=== PATIENT | female | born 1960 | race Hispanic/Latino ===

== ENCOUNTER 2016-12-04 22:43 | Emergency (ER) | payer MEDICARE, BC ==
[2016-12-04 23:15] LABS: URINE BILIRUBIN NEGATIVE (NEGATIVE); URINE COLOR Straw (YELLOW); URINE GLUCOSE (UA) NORMAL (Normal); URINE KETONE NEGATIVE (NEGATIVE); URINE LEUKOCYTE ESTERASE NEG Leu/uL (Negative); URINE PROTEIN NEGATIVE (NEGATIVE); URINE UROBILINOGEN NORMAL mg/dL (0.2-1.0); WBC URINE 1 /hpf (0-5)
[2016-12-04 23:30] LABS: URINE BLOOD TRACE (NEGATIVE)
[2016-12-04 23:41] LABS: BASO # 0.1 K/uL (0.0-0.2); BASO % 0.9 % (0.0-2.0); EOS # 0.2 K/uL (0.0-0.7); HEMATOCRIT 39.4 % (34.0-47.0); LYMPH # 3.1 K/uL (1.0-4.3); LYMPH % 34.5 % (20.0-40.0); MEAN CELL VOLUME 85.6 fL (81.0-99.0); MEAN CORPUSCULAR HEMOGLOBIN 29.3 pg (27.0-31.0); MEAN CORPUSCULAR HGB CONC 34.3 g/dL (33.0-37.0); MEAN PLATELET VOLUME 8.8 fL (7.2-11.7); MONO # 0.7 K/uL (0.0-0.8); RED CELL DISTRIBUTION WIDTH 13.7 % (11.5-14.5)
[2016-12-04 23:51] LABS: CHLORIDE 100 mmol/L (98-107); SODIUM 140 mmol/L (132-148)
[2016-12-04 23:52] LABS: POTASSIUM 3.8 mmol/L (3.6-5.2)
[2016-12-04 23:54] LABS: ALB/GLOB RATIO 1.4 (1.0-2.1); ALKALINE PHOSPHATASE 93 U/L (38-126); ALT/SGPT 32 U/L (9-52); AST/SGOT 27 U/L (14-36); BILIRUBIN,TOTAL 0.5 mg/dL (0.2-1.3); BLOOD UREA NITROGEN 14 mg/dL (7-17); CALCIUM 9.7 mg/dl (8.6-10.4); CARBON DIOXIDE 25 mmol/L (22-30); GFR AFRICAN-AMERICAN > 60; GLUCOSE,RANDOM 89 mg/dL (65-105); TOTAL PROTEIN 7.9 g/dL (6.3-8.3)
--- NOTE | 2016-12-05 00:08 | C.PDOC ---
History Of Present Illness 56 year old female with a Hx of UTIs and renal transplant who presents to the ER requesting evaluation because she is concerned she is not producing her usual amount of urine. Patient reports having good compliance with her medications; denies fever, chills, dysuria, or hematuria. Patient is scheduled tomorrow for her 3 month lab test for renal function by Dr. Benavides. Time Seen by Provider: 12/04/16 23:20 Chief Complaint (Nursing): Female Genitourinary History Per: Patient History/Exam Limitations: no limitations Onset/Duration Of Symptoms: Days Current Symptoms Are (Timing): Still Present Associated Symptoms: denies: Fever, Chills, Urinary Symptoms (Dysuria, hematuria ) Alleviating Factors: None Recent travel outside of the [place]: No Abnormal Vaginal Bleeding: No Past Medical History Reviewed: Historical Data, Nursing Documentation, Vital Signs Vital Signs: Last Vital Signs Temp 98.6 F 12/05/16 00:28 Pulse 90 12/05/16 00:28 Resp 18 12/05/16 00:28 BP 146/99 H 12/05/16 00:28 Pulse Ox 99 12/05/16 00:28 - Medical History PMH: HTN Surgical History: No Surg Hx Family History: States: Unknown Family Hx - Social History Hx Alcohol Use: No Hx Substance Use: No - Immunization History Hx Tetanus Toxoid Vaccination: No Hx Influenza Vaccination: No Hx Pneumococcal Vaccination: Yes Review Of Systems Constitutional: Negative for: Fever, Chills Gastrointestinal: Negative for: Abdominal Pain Genitourinary: Positive for: Other (Producing less urine). Negative for: Dysuria, Hematuria Physical Exam - Physical Exam Appears: Non-toxic, No Acute Distress Skin: Normal Color, Warm, Dry Head: Atraumatic, Normacephalic Oral Mucosa: Moist Neck: Normal, Supple Chest: Symmetrical, No Tenderness Cardiovascular: Rhythm Regular, No JVD Respiratory: Normal Breath Sounds, No Rales, No Rhonchi, No Wheezing Gastrointestinal/Abdominal: Soft, No Tenderness Extremity: Normal ROM (x4), No Pedal Edema Neurological/Psych: Oriented x3, Normal Speech, Normal Cognition ED Course And Treatment - Laboratory Results Result Diagrams: 12/04/16 23:39 12/04/16 23:39 Lab Interpretation: Normal (UA neg.) ECG: Interpreted By Me ECG Rhythm: Sinus Rhythm ECG Interpretation: Normal Rate From EC O2 Sat by Pulse Oximetry: 100 (Room air) Pulse Ox Interpretation: Normal Progress Note: EKG, blood work, and urinalysis ordered. Reevaluation Time: 00:17 Reassessment Condition: Unchanged (remains asymptomatic) Medical Decision Making Medical Decision Making: baseline normal renal fxn. pt's concern for diminished urine output is curious but pt seems euvolemic and no s/s of fluid overload. no UTI Disposition Doctor Will See Patient In The: Office Counseled Patient/Family Regarding: Studies Performed, Diagnosis - Disposition Referrals: Deniz Benavides MD [Staff Provider] - Disposition: HOME/ ROUTINE Disposition Time: 00:18 Condition: GOOD Additional Instructions: todos manolo examenes de la farooq y la orina son normales Sigue con Dr. Benavides ahsan normal. Forms: Gen Discharge Inst Sinhala, [facility] (Mosotho) Print Language: CROATIAN - Clinical Impression Clinical Impression: Urine output low - Scribe Statement The provider has reviewed the documentation as recorded by the Scribe Jamel Weinstein All medical record entries made by the Scribe were at my direction and personally dictated by me. I have reviewed the chart and agree that the record accurately reflects my personal performance of the history, physical exam, medical decision making, and the department course for this patient. I have also personally directed, reviewed, and agree with the discharge instructions and disposition.
[2016-12-05 00:29] VITALS: BP 146/99; PULSE 90; RESP 18; TEMP 98.6
[2016-12-05 03:56] VITALS: O2SAT 100
--- NOTE | 2016-12-07 13:19 | CARD ---
APPROVED REPORT EKG Measurement Heart [id number] <Conclusion> Poor data quality, interpretation may be adversely affected Normal sinus rhythm Nonspecific ST and T wave abnormality Abnormal ECG
== END 2016-12-05 00:28 | disposition home or self-care (01) ==
LOC: C.ER 22:43
DX: R39.89 Other symptoms and signs involving the genitourinary system (principal); I10 Essential (primary) hypertension; Z87.440 Personal history of urinary (tract) infections; Z94.0 Kidney transplant status

== ENCOUNTER 2018-03-14 08:55 | Emergency (ER) | payer MEDICARE, BC ==
[2018-03-14 09:14] VITALS: TEMP 97.9
[2018-03-14] MEDS ORDERED: Lidocaine 5% Patch TD STA (10:03)
[2018-03-14] MEDS ORDERED: Lidocaine 5% Patch TD ONE (10:09)
[2018-03-14] MEDS ORDERED: Morphine 4 MG/ML VIAL ONE (10:09)
--- NOTE | 2018-03-14 10:21 | C.PDOC ---
History Of Present Illness 57 y/o female presents to ED omplaining of diffuse back pain, greatest in lower back, for approx 1 week and worsening today. She states the pain radiates down to her right leg. Patient has been taking Tylenol for pain and reports no relief. She admits to nausea, but denies fever, chills, vomiting, diarrhea, abdominal pain, dysuria/hematuria, abdominal pain, vaginal bleeding/discharge. PMHx of SLE, HTN, and kidney transplant. Time Seen by Provider: 03/14/18 09:08 Chief Complaint (Nursing): Pain, Chronic History Per: Patient History/Exam Limitations: no limitations Onset/Duration Of Symptoms: Days Current Symptoms Are (Timing): Still Present Severity: Moderate Past Medical History Reviewed: Historical Data, Nursing Documentation, Vital Signs Vital Signs: Last Vital Signs Temp 97.9 F 03/14/18 09:02 Pulse 97 H 03/14/18 09:02 Resp 18 03/14/18 09:02 BP 159/102 H 03/14/18 09:02 Pulse Ox 97 03/14/18 09:02 - Medical History PMH: HTN, Chronic Kidney Disease Family History: States: No Known Family Hx - Social History Hx Alcohol Use: Yes Hx Substance Use: No - Immunization History Hx Tetanus Toxoid Vaccination: No Hx Influenza Vaccination: Yes Hx Pneumococcal Vaccination: No Review Of Systems Except As Marked, All Systems Reviewed And Found Negative. Constitutional: Negative for: Fever, Chills Cardiovascular: Negative for: Chest Pain, Palpitations Respiratory: Negative for: Cough, Shortness of Breath Gastrointestinal: Positive for: Nausea. Negative for: Vomiting, Abdominal Pain, Diarrhea Genitourinary: Negative for: Dysuria Musculoskeletal: Positive for: Back Pain (radiating down to R leg) Skin: Negative for: Rash Neurological: Negative for: Weakness, Numbness Physical Exam - Physical Exam Appears: Well, Non-toxic, In Acute Distress (in moderate pain) Skin: Normal Color, Warm, Dry, No Rash Head: Normacephalic Eye(s): bilateral: Normal Inspection Oral Mucosa: Moist Neck: Supple Chest: Symmetrical Cardiovascular: Rhythm Regular, No Murmur Respiratory: Normal Breath Sounds, No Rales, No Rhonchi, No Wheezing Gastrointestinal/Abdominal: Normal Exam, Bowel Sounds, Soft, No Tenderness Back: No CVA Tenderness, No Vertebral Tenderness, Paraspinal Tenderness, Other (diffuse tenderness, greatest in lumbar region; no midline tenderness) Extremity: Bilateral: Normal Color And Temperature, Normal ROM Neurological/Psych: Oriented x3, Normal Speech, Normal Motor Gait: Steady ED Course And Treatment O2 Sat by Pulse Oximetry: 97 (RA) Pulse Ox Interpretation: Normal Progress Note: Patient confirms current pain is consistent with prior chronic/SLE pain. IM morphine given. Reevaluation Time: 11:20 Reassessment Condition: Improved (On reassessment, patient is resting comfortably and states her pain has improved. She is able to ambulate normally in the ED, and is comfortable being discharged home. Rxs for Tramadol and Lidoderm patches given. Patient instructed to follow up with PMD in 1-2 days, and she understands she should return to ED if symptoms worsen.) Disposition Counseled Patient/Family Regarding: Studies Performed, Diagnosis, Need For Followup - Disposition Referrals: Ivan Aguila [Staff Provider] - Disposition: HOME/ ROUTINE Disposition Time: 11:20 Condition: STABLE Prescriptions: Lidocaine 5% [Lidoderm] 1 patch TOP DAILY PRN #10 patch PRN Reason: pain traMADol [Ultram] 50 mg PO BID PRN #15 tab PRN Reason: pain Instructions: Low Back Pain (DC) Forms: [facility] (Ivorian) Print Language: FAROESE - Clinical Impression Clinical Impression: SLE (systemic lupus erythematosus), Chronic pain - Scribe Statement The provider has reviewed the documentation as recorded by the Juan Sparks Provider Attestation: All medical record entries made by the Gabrielibphong were at my direction and personally dictated by me. I have reviewed the chart and agree that the record accurately reflects my personal performance of the history, physical exam, medic al decision making, and the department course for this patient. I have also personally directed, reviewed, and agree with the discharge instructions and disposition.
[2018-03-14 12:19] VITALS: BP 143/96; PULSE 89; RESP 15
[2018-03-26 07:58] VITALS: O2SAT 97
== END 2018-03-14 11:32 | disposition home or self-care (01) ==
LOC: C.ER 08:55
DX: M32.9 Systemic lupus erythematosus, unspecified (principal); G89.29 Other chronic pain
CPT/HCPCS: 96372; 99285; J2270

== ENCOUNTER 2018-04-16 22:31 | Emergency (ER) | payer MEDICARE, BC ==
[2018-04-16] MEDS ORDERED: Oxycodone/Acetaminophen 5/325 mg Tab PO STA (23:35)
--- NOTE | 2018-04-16 23:38 | C.PDOC ---
History Of Present Illness 57 year old female presents to the ER with a complaint of pain to the left lower rib area that began last week. Patient states the pain is digitally and positionally reproducible. Denies trauma. Patient has many chronic pain issues after which she gets spinal injections. She claims she had a right renal transplant and cannot use NSAIDS. Time Seen by Provider: 04/16/18 23:25 Chief Complaint (Nursing): Abdominal Pain History Per: Patient History/Exam Limitations: no limitations Onset/Duration Of Symptoms: Days Current Symptoms Are (Timing): Still Present Location Of Pain/Discomfort: Other (Left lower rib area) Quality Of Discomfort: Unable To Describe Exacerbating Factors: None Alleviating Factors: None Recent travel outside of the [place]: No Abnormal Vaginal Bleeding: No Past Medical History Reviewed: Historical Data, Nursing Documentation, Vital Signs Vital Signs: Last Vital Signs Temp 98.8 F 04/16/18 23:02 Pulse 95 H 04/16/18 23:02 Resp 20 04/16/18 23:02 BP 128/94 H 04/16/18 23:02 Pulse Ox 95 04/16/18 23:02 - Medical History PMH: HTN, Chronic Kidney Disease Family History: States: Unknown Family Hx - Social History Hx Alcohol Use: Yes Hx Substance Use: No - Immunization History Hx Tetanus Toxoid Vaccination: No Hx Influenza Vaccination: Yes Hx Pneumococcal Vaccination: No Review Of Systems Constitutional: Negative for: Fever, Chills Cardiovascular: Negative for: Chest Pain, Palpitations Respiratory: Negative for: Cough, Shortness of Breath Gastrointestinal: Negative for: Nausea, Vomiting Musculoskeletal: Positive for: Other (Left lower rib area pain) Neurological: Negative for: Weakness, Numbness Physical Exam - Physical Exam Appears: Non-toxic, Other (In no acute distress initially but anxious on evaluation) Skin: Normal Color, Warm, Dry Head: Atraumatic, Normacephalic Eye(s): bilateral: Normal Inspection Oral Mucosa: Moist Neck: Normal, Supple Chest: Symmetrical, Tenderness (Intercostal space of left lower rib area at midclavicular line) Cardiovascular: Rhythm Regular Respiratory: Normal Breath Sounds, No Rales, No Rhonchi, No Wheezing Gastrointestinal/Abdominal: Soft, No Tenderness Back: No CVA Tenderness Extremity: Normal ROM (x4) Neurological/Psych: Oriented x3, Normal Speech ED Course And Treatment O2 Sat by Pulse Oximetry: 95 Medical Decision Making Medical Decision Making: intercostal pain, chronic L lower ribs NOT abdominal pending bone scan in AM refused NSAIDS due to renal txplnt Declined Tramadol- ineffective for pt Percocet offered radiology deferred with informed consent- Disposition Doctor Will See Patient In The: Office Counseled Patient/Family Regarding: Studies Performed, Diagnosis - Disposition Referrals: [facility] [Outside] [facility] [Outside] [facility] [Outside] Deniz Benavides MD [Staff Provider] - Disposition: HOME/ ROUTINE Disposition Time: 23:37 Condition: GOOD Additional Instructions: [place] de hielo 1/2 hora por hora, nada caliente Tylenol 1000 mg cada 6 horas ahsan necessario Sigue con Dr Benavides y para el Bone Scan manana Instructions: Costochondritis (DC) Forms: [facility] (Belarusian) Print Language: PASHTO - Clinical Impression Clinical Impression: Rib pain on left side - Scribe Statement The provider has reviewed the documentation as recorded by the Scribe Jamel Weinstein All medical record entries made by the Scribe were at my direction and personally dictated by me. I have reviewed the chart and agree that the record accurately reflects my personal performance of the history, physical exam, medical decision making, and the department course for this patient. I have also personally directed, reviewed, and agree with the discharge instructions and disposition.
[2018-04-16] MEDS ORDERED: Oxycodone/Acetaminophen 5/325 mg Tab ONE (23:43)
[2018-04-17 00:10] VITALS: BP 147/78; PULSE 74; RESP 17; TEMP 98.9
[2018-04-17 01:06] VITALS: O2SAT 95
== END 2018-04-17 00:09 | disposition home or self-care (01) ==
LOC: C.ER 22:31
DX: R07.81 Pleurodynia (principal)

== ENCOUNTER 2018-04-17 07:25 | Outpatient (CLI) | payer MEDICARE, BC | END 2018-04-17 07:26 | disposition home or self-care (01) | LOC: C.NUCMED 07:25 | DX: R93.89 Abnormal findings on diagnostic imaging of other specified body structures (principal) ==